=== PATIENT | male | born 1995 ===

== ENCOUNTER 2025-01-15 18:57 | Outpatient (CLI) | payer MEDICARE, SELFPAY | END 2025-01-15 18:58 | disposition home or self-care (01) | LOC: AMB 01-19 01:20 | PROVIDERS: Visit Provider Family Medicine | DX: F29 Unspecified psychosis not due to a substance or known physiological condition (principal) | CPT/HCPCS: A0425; A0429 ==

== ENCOUNTER 2025-01-15 19:17 | Emergency (ER) | payer MEDICARE, SELFPAY ==
[2025-01-15 19:27] VITALS: BP 122/87; PULSE 102; RESP 22; TEMP 36.6; O2SAT 95; BMI 30.1
[2025-01-15 19:35] LABS: Cannabinoid Screen Urine Negative (Negative); Methamphetamines Screen Urine Negative (Negative); Tricyclic Antidepressant Urine Negative (Negative)
--- NOTE | 2025-01-15 20:01 | ED.AMS ---
HPI - Altered Mental Status General Time Seen by Provider: 20:01 <Manuela Montano MD - Last Filed: 01/19/25 14:40> Date Seen: 01/15/25 <Manuela Montano MD - Last Filed: 01/19/25 14:40> Chief Complaint: Altered Mental Status <Manuela Montano MD - Last Filed: 01/19/25 14:40> Stated Complaint: Hallucinations <Manuela Montano MD - Last Filed: 01/19/25 14:40> Time Seen by Provider: 01/15/25 20:01 <Manuela Montano MD - Last Filed: 01/19/25 14:40> Source: patient and RN notes reviewed <Manuela Montano MD - Last Filed: 01/19/25 14:40> Mode of arrival: ambulatory <Manuela Montano MD - Last Filed: 01/19/25 14:40> Limitations: no limitations <Manuela Montano MD - Last Filed: 01/19/25 14:40> History of Present Illness HPI narrative: New is a very pleasant 29-year-old male with history of hallucinations in the past, possibly schizophrenia currently on Geodon who is brought to the emergency room by EMS after he thought somebody was following him in an SUV and went to a random house and asked for help. He comes here voluntarily. His mom called nursing staff stating that she would like him to have inpatient treatment. In discussion with the patient, he notes that he is currently here at a sober house in [place] for the past few weeks for the treatment of alcohol abuse. He has not had any alcohol. Notes that he has been randomly vomiting but no diarrhea fever chills and he has not suffered any trauma. He tells me has a history of PTSD and when his anxiety spikes he hears voices. The voices do not tell him anything specifically to do. He notes right now he is still feeling somewhat panicked. He is agreeable to taking some medication. Denies any drug use. Does use cigarettes. Has been hospitalized previously in [place]. He does ask if we have a psychiatric floor here at [facility]. He is disappointed that we do not. Denies fever chills cough cold congestion. The patient denies any suicidal ideation. No homicidal ideation. <Manuela Montano MD - Last Filed: 01/19/25 14:40> Related Data Home Medications: Home Medications ?Medication ?Instructions ?Recorded ?Confirmed fluoxetine 20 mg capsule 60 mg PO QAM 01/16/25 01/16/25 hydroxyzine pamoate 50 mg capsule 50 mg PO BID PRN 01/16/25 01/16/25 prazosin 1 mg capsule 3 mg PO QHS 01/16/25 01/16/25 trazodone 50 mg tablet 50 mg PO QPM 01/16/25 01/16/25 ziprasidone HCl 80 mg capsule 80 mg PO BID 01/16/25 01/16/25 <Manuela Montano MD - Last Filed: 01/19/25 14:40> Allergies/Adverse Reactions: Allergies Allergy/AdvReac Type Severity Reaction Status Date / Time No Known Drug Allergies Allergy Verified 01/16/25 08:11 <Manuela Montano MD - Last Filed: 01/19/25 14:40> Review of Systems Status of ROS: Reports: 10 or more systems reviewed and unremarkable except as noted in History and below <Manuela Montano MD - Last Filed: 01/19/25 14:40> Const: Denies: fever, chills or fatigue <Manuela Montano MD - Last Filed: 01/19/25 14:40> Eyes: Denies: change in vision or blurry vision <Manuela Montano MD - Last Filed: 01/19/25 14:40> ENMT: Denies: throat pain, neck pain or nasal congestion <Manuela Montano MD - Last Filed: 01/19/25 14:40> Cardio: Denies: chest pain, palpitations, swelling of feet/ankles, lightheadedness or shortness of breath with exertion <Manuela Montano MD - Last Filed: 01/19/25 14:40> Resp: Denies: shortness of breath or cough <Manuela Montano MD - Last Filed: 01/19/25 14:40> GI: Reports: nausea and vomiting; Denies: abdominal pain or diarrhea <Manuela Montano MD - Last Filed: 01/19/25 14:40> : Reports: urinary frequency; Denies: painful urination or urinary urgency <Manuela Montano MD - Last Filed: 01/19/25 14:40> Musculo: Denies: back pain or neck pain <Manuela Montano MD - Last Filed: 01/19/25 14:40> Integ/Breast: Denies: rash <Manuela Montano MD - Last Filed: 01/19/25 14:40> Neuro: Denies: headache <Manuela Montano MD - Last Filed: 01/19/25 14:40> Psych: Reports: anxiety and panic attacks; Denies: suicidal ideation or homicidal ideation <Manuela Montano MD - Last Filed: 01/19/25 14:40> Endo: Denies: fatigue <Manuela Montano MD - Last Filed: 01/19/25 14:40> PFSH PFSH Social History: Social History Smoking Status: Current every day smoker What tobacco products do you use: cigarettes How often do you have a drink containing alcohol: never AUDIT-C Alcohol total score: 0 Non-prescribed substance use: denies use <Manuela Montano MD - Last Filed: 01/19/25 14:40> Exam Narrative: Exam Narrative: Alert and oriented. Slight delay in answering questions but when he does it is appropriate speech pronunciation and mentation. Eye contact ranges from a staring to avoiding my gaze. Face is symmetrical. Head is atraumatic. Heart with regular rate and rhythm and lungs are clear. Abdomen soft. Moving all extremities. <Manuela Montano MD - Last Filed: 01/19/25 14:40> Const: Vital Signs, click to edit/add: Vital Signs - 24 hr 01/15/25 23:58 01/16/25 02:38 01/16/25 07:41 Temperature 98.5 F Pulse Rate [Right Radial] 83 80 84 Respiratory Rate 16 16 16 Blood Pressure [Ri ght Upper Arm] 136/91 H 125/73 127/79 Pulse Oximetry 93 96 95 Oxygen Delivery Me thod Room Air Room Air Room Air 01/16/25 12:31 Temperature 98.1 F Pulse Rate [Right Radial] 76 Respiratory Rate 16 Blood Pressure [Ri ght Upper Arm] 122/59 L Pulse Oximetry 96 Oxygen Delivery Me thod Room Air <Manuela Montano MD - Last Filed: 01/19/25 14:40> Vital Signs, click to edit/add: Vital Signs - 24 hr 01/15/25 23:58 01/16/25 02:38 01/16/25 07:41 Temperature 98.5 F Pulse Rate [Right Radial] 83 80 84 Respiratory Rate 16 16 16 Blood Pressure [Ri ght Upper Arm] 136/91 H 125/73 127/79 Pulse Oximetry 93 96 95 Oxygen Delivery Me thod Room Air Room Air Room Air 01/16/25 12:31 Temperature 98.1 F Pulse Rate [Right Radial] 76 Respiratory Rate 16 Blood Pressure [Ri ght Upper Arm] 122/59 L Pulse Oximetry 96 Oxygen Delivery Me thod Room Air <Cathy Mayo MD - Last Filed: 01/16/25 23:53> Vital Signs, click to edit/add: Vital Signs - 24 hr 01/15/25 23:58 01/16/25 02:38 01/16/25 07:41 Temperature 98.5 F Pulse Rate [Right Radial] 83 80 84 Respiratory Rate 16 16 16 Blood Pressure [Ri ght Upper Arm] 136/91 H 125/73 127/79 Pulse Oximetry 93 96 95 Oxygen Delivery Me thod Room Air Room Air Room Air 01/16/25 12:31 Temperature 98.1 F Pulse Rate [Right Radial] 76 Respiratory Rate 16 Blood Pressure [Ri ght Upper Arm] 122/59 L Pulse Oximetry 96 Oxygen Delivery Me thod Room Air <Alon Olsen DO - Last Filed: 01/16/25 16:05> Documenting provider has reviewed patient's vital signs: yes <Manuela Montano MD - Last Filed: 01/19/25 14:40> Course Course ED Course: Differential diagnosis includes but is not limited to drug use, alcohol withdrawal, flare of schizophrenia, electrolyte imbalance. Patient denies any suicidal ideation at this time he has been cooperative here in the emergency room and states stated to nursing staff that he wants to be here. Does appear that he feels safe to be here. He is receptive to medication and I do think it will given Valium 5 mg IV as there is a shortage of Ativan. Will also give 1 L of normal saline and check CBC, comprehensive panel, TSH, magnesium, EtOH. U tox is already sent. Will also check urinalysis. <Manuela Montano MD - Last Filed: 01/19/25 14:40> Reevaluation(s) Reevaluation #1: Patient is much more relaxed and the Valium seems to have helped. <Manuela Montano MD - Last Filed: 01/19/25 14:40> Patient is much more relaxed and the Valium seems to have helped. Update:Dr. Mayo: Patient had no additional issues overnight. He requested trazodone for sleep which was ordered for him as well as a low-dose of oral lorazepam and patient did get some sleep tonight. He remained sleeping at the end of my shift, observed on monitors only. Vital signs have been stable. Daily home meds have been ordered. Awaiting inpatient placement. <Cathy Mayo MD - Last Filed: 01/16/25 23:53> Consultations Consultation #1: I spoke with CLAUDIA and patient expressed self-harm thoughts the distance learning unit leader but denies them to me. Patient is willing to go inpatient. <Manuela Montano MD - Last Filed: 01/19/25 14:40> Vital Signs Vital signs: Initial Vital Signs Temperature 98 F 01/15/25 19:27 Temperature Source Temporal Artery Scan 01/15/25 19:27 Pulse Rate 102 H 01/15/25 19:27 Respiratory Rate 22 01/15/25 19:27 Blood Pressure 122/87 01/15/25 19:27 Blood Pressure Mean 98 01/15/25 19:27 Pulse Oximetry 95 01/15/25 19:27 Oxygen Delivery Method Room Air 01/15/25 19:27 Vital Signs Temperature 98 F 01/15/25 19:27 Pulse Rate 102 H 01/15/25 19:27 Respiratory Rate 22 01/15/25 19:27 Blood Pressure 122/87 01/15/25 19:27 Pulse Oximetry 95 01/15/25 19:27 Oxygen Delivery Method Room Air 01/15/25 19:27 Temperature 98.1 F 01/16/25 12:31 Pulse Rate 76 01/16/25 12:31 Respiratory Rate 16 01/16/25 12:31 Blood Pressure 122/59 L 01/16/25 12:31 Pulse Oximetry 96 01/16/25 12:31 Oxygen Delivery Method Room Air 01/16/25 12:31 <Manuela Montano MD - Last Filed: 01/19/25 14:40> Initial Vital Signs Temperature 98 F 01/15/25 19:27 Temperature Source Temporal Artery Scan 01/15/25 19:27 Pulse Rate 102 H 01/15/25 19:27 Respiratory Rate 22 01/15/25 19:27 Blood Pressure 122/87 01/15/25 19:27 Blood Pressure Mean 98 01/15/25 19:27 Pulse Oximetry 95 01/15/25 19:27 Oxygen Delivery Method Room Air 01/15/25 19:27 Vital Signs Temperature 98 F 01/15/25 19:27 Pulse Rate 102 H 01/15/25 19:27 Respiratory Rate 22 01/15/25 19:27 Blood Pressure 122/87 01/15/25 19:27 Pulse Oximetry 95 01/15/25 19:27 Oxygen Delivery Method Room Air 01/15/25 19:27 Temperature 98.1 F 01/16/25 12:31 Pulse Rate 76 01/16/25 12:31 Respiratory Rate 16 01/16/25 12:31 Blood Pressure 122/59 L 01/16/25 12:31 Pulse Oximetry 96 01/16/25 12:31 Oxygen Delivery Method Room Air 01/16/25 12:31 <Cathy Mayo MD - Last Filed: 01/16/25 23:53> Initial Vital Signs Temperature 98 F 01/15/25 19:27 Temperature Source Temporal Artery Scan 01/15/25 19:27 Pulse Rate 102 H 01/15/25 19:27 Respiratory Rate 22 01/15/25 19:27 Blood Pressure 122/87 01/15/25 19:27 Blood Pressure Mean 98 01/15/25 19:27 Pulse Oximetry 95 01/15/25 19:27 Oxygen Delivery Method Room Air 01/15/25 19:27 Vital Signs Temperature 98 F 01/15/25 19:27 Pulse Rate 102 H 01/15/25 19:27 Respiratory Rate 22 01/15/25 19:27 Blood Pressure 122/87 01/15/25 19:27 Pulse Oximetry 95 01/15/25 19:27 Oxygen Delivery Method Room Air 01/15/25 19:27 Temperature 98.1 F 01/16/25 12:31 Pulse Rate 76 01/16/25 12:31 Respiratory Rate 16 01/16/25 12:31 Blood Pressure 122/59 L 01/16/25 12:31 Pulse Oximetry 96 01/16/25 12:31 Oxygen Delivery Method Room Air 01/16/25 12:31 <Alon Olsen DO - Last Filed: 01/16/25 16:05> Medications Administered Medications: Discontinued Medications Generic Name Dose Route Start Last Admin Trade Name Freq PRN Reason Stop Dose Admin Diazepam 5 mg 01/15/25 20:19 01/15/25 20:30 Diazepam 5 Mg/Ml Inj IV 01/15/25 20:20 5 mg ONCE ONE Administration Fluoxetine HCl 60 mg 01/16/25 09:00 01/16/25 08:29 Fluoxetine Hcl 20 Mg Capsule PO 60 mg QAM MARIELY Administration Sodium Chloride 1,000 mls @ 1,000 mls/hr 01/15/25 20:19 01/15/25 21:55 0.9 % Sodium Chloride 1000 Ml IV 01/15/25 21:18 Infused .Q1H MARIELY Infusion Lorazepam 1 mg 01/16/25 02:24 01/16/25 02:28 Lorazepam 0.5 Mg Tablet PO 01/16/25 02:25 1 mg ONCE ONE Administration Trazodone HCl 50 mg 01/16/25 02:24 01/16/25 02:38 Trazodone Hcl 50 Mg Tablet PO 01/16/25 02:25 50 mg ONCE ONE Administration Ziprasidone 80 mg 01/16/25 09:00 01/16/25 08:29 Ziprasidone Hcl 20 Mg Capsule PO 80 mg BID MARIELY Administration <Manuela Montano MD - Last Filed: 01/19/25 14:40> Discontinued Medications Generic Name Dose Route Start Last Admin Trade Name Freq PRN Reason Stop Dose Admin Diazepam 5 mg 01/15/25 20:19 01/15/25 20:30 Diazepam 5 Mg/Ml Inj IV 01/15/25 20:20 5 mg ONCE ONE Administration Fluoxetine HCl 60 mg 01/16/25 09:00 01/16/25 08:29 Fluoxetine Hcl 20 Mg Capsule PO 60 mg QAM MARIELY Administration Sodium Chloride 1,000 mls @ 1,000 mls/hr 01/15/25 20:19 01/15/25 21:55 0.9 % Sodium Chloride 1000 Ml IV 01/15/25 21:18 Infused .Q1H MARIELY Infusion Lorazepam 1 mg 01/16/25 02:24 01/16/25 02:28 Lorazepam 0.5 Mg Tablet PO 01/16/25 02:25 1 mg ONCE ONE Administration Trazodone HCl 50 mg 01/16/25 02:24 01/16/25 02:38 Trazodone Hcl 50 Mg Tablet PO 01/16/25 02:25 50 mg ONCE ONE Administration Ziprasidone 80 mg 01/16/25 09:00 01/16/25 08:29 Ziprasidone Hcl 20 Mg Capsule PO 80 mg BID MARIELY Administration <Cathy Mayo MD - Last Filed: 01/16/25 23:53> Discontinued Medications Generic Name Dose Route Start Last Admin Trade Name Freq PRN Reason Stop Dose Admin Diazepam 5 mg 01/15/25 20:19 01/15/25 20:30 Diazepam 5 Mg/Ml Inj IV 01/15/25 20:20 5 mg ONCE ONE Administration Fluoxetine HCl 60 mg 01/16/25 09:00 01/16/25 08:29 Fluoxetine Hcl 20 Mg Capsule PO 60 mg QAM MAIRELY Administration Sodium Chloride 1,000 mls @ 1,000 mls/hr 01/15/25 20:19 01/15/25 21:55 0.9 % Sodium Chloride 1000 Ml IV 01/15/25 21:18 Infused .Q1H MARIELY Infusion Lorazepam 1 mg 01/16/25 02:24 01/16/25 02:28 Lorazepam 0.5 Mg Tablet PO 01/16/25 02:25 1 mg ONCE ONE Administration Trazodone HCl 50 mg 01/16/25 02:24 01/16/25 02:38 Trazodone Hcl 50 Mg Tablet PO 01/16/25 02:25 50 mg ONCE ONE Administration Ziprasidone 80 mg 01/16/25 09:00 01/16/25 08:29 Ziprasidone Hcl 20 Mg Capsule PO 80 mg BID MARIELY Administration <Alon Olsen DO - Last Filed: 01/16/25 16:05> MDM - Altered Mental Status MDM Narrative Medical decision making narrative: 1. Schizophrenia-have not received notes from his primary hospital but patient does state that he does have this diagnosis. Has been previously hospitalized in [place]. Unfortunately, his anxiety and stressors have been increased today as he is thinking that an SUV has been following him. He denies any visual hallucinations today although admits that that has happened in the past. Patient received Valium 5 mg and this seems to have helped him quite a bit. Consult with our [facility] mental health was done. Patient then stated he was suicidal. We will be finding a bed for him. Is voluntary at this point. 2. Vomiting-alcohol level is 0 and patient has not been drinking for several weeks. He does not appear to be in withdrawal. Electrolytes are reassuring along with normal kidney function. 3. Disposition-patient currently resting comfortably in exam room 2. He has been cooperative and interactive. Voluntary at this time. However, should he attempt to leave I will be placing a 72 hour hold. Currently attempting inpatient treatment and transfer to outside facility. This patient will be signed out to my colleague Dr. Mayo. <Manuela Montano MD - Last Filed: 01/19/25 14:40> Patient was signed out to me pending placement. He was accepted to [facility] in [facility]. Transfer is delayed due to EMS staffing. Will be signed out to my colleague pending transfer <Alon Olsen DO - Last Filed: 01/16/25 16:05> Lab Data Attestation: I reviewed the patient's lab results. <Manuela Montano MD - Last Filed: 01/19/25 14:40> Labs: Lab Results 01/15/25 01/15/25 01/15/25 Range/Units 19:21 20:19 20:30 WBC 8.26 (4.50-11.00) K/uL RBC 5.31 (4.30-5.90) m/uL Hgb 15.0 (13.5-17.5) gm/dL Hct 43.3 (37.0-53.0) % MCV 82 (80-100) fL MCH 28 (26-34) pg MCHC 35 (32-36) gm/dL RDW Coeff of Yuli 11.9 (11.5-15.5) % Plt Count 211 (140-440) K/uL Neut % (Auto) 78.9 H (42.0-72.0) % Lymph % (Auto) 13.4 L (20-44) % [place] % (Auto) 6.1 (0.0-11.0) % Eos % (Auto) 0.7 (0.0-7.0) % Baso % (Auto) 0.4 (0.0-3.0) % Neut # (Auto) 6.50 (1.7-7.0) K/uL Lymph # (Auto) 1.10 (0.90-2.90) K/uL [place] # (Auto) 0.50 (0.00-0.90) K/UL Eos # (Auto) 0.06 (0.00-0.50) K/uL Baso # (Auto) 0.03 (0.00-0.30) K/uL Abs Immat Gran (auto) 0.04 (0.00-0.30) K/uL Imm/Tot Granulo (auto) 0.5 % Sodium 136 (135-149) mmol/L Potassium 3.5 L (3.6-5.1) mmol/L Chloride 100 (96-114) mmol/L Carbon Dioxide 26 (20-32) mmol/L Anion Gap 8 (7-15) mEq/L BUN 15 (5-24) mg/dL Creatinine 0.8 (0.5-1.5) mg/dL Estimated Creat Clear 129.68 Estimated GFR 124 ml/min Glucose 123 H (60-115) mg/dL Calcium 8.6 (8.4-10.6) mg/dL Magnesium 1.8 (1.5-2.6) mg/dL Total Bilirubin 0.4 (0.1-1.5) mg/dL AST 37 H (12-35) U/L ALT 36 (4-50) U/L Alkaline Phosphatase 93 (40-150) U/L Total Protein 7.2 (6.0-8.3) g/dL Albumin 4.3 (3.3-5.0) g/dL TSH 1.760 (0.270-4.200) uIU/mL Urine Color Yellow (Yellow) Urine Appearance Clear (Clear) Urine pH 6.5 (5.0-8.5) Ur Specific [place] 1.025 (1.000-1.030) Urine Protein Negative (Negative) Urine Glucose (UA) Negative (Negative) Urine Ketones Negative (Negative) Urine Blood Negative (Negative) Urine Nitrite Negative (Negative) Urine Bilirubin Negative (Negative) Urine Urobilinogen 0.2 (0.2-1.0) Ur Leukocyte Esterase Negative (Negative) Urine RBC 0-2 (0-2) Urine WBC 0-2 (0-5) Ur Squamous Epith Cells Few (None-Few) Urine Bacteria None (None) Urine Opiates Screen Negative (Negative) Ur Oxycodone Screen Negative (Negative) Urine Methadone Screen Negative (Negative) Ur Barbiturates Screen Negative (Negative) U Tricyclic Antidepress Negative (Negative) Ur Phencyclidine Scrn Negative (Negative) Ur Amphetamines Screen Negative (Negative) U Methamphetamines Scrn Negative (Negative) U Benzodiazepines Scrn Negative (Negative) Urine Cocaine Screen Negative (Negative) U Marijuana (THC) Screen Negative (Negative) Ur Drug Screen Comment See Note Ethyl Alcohol < 0.01 (0.01-0.03) % <Manuela Montano MD - Last Filed: 01/19/25 14:40> Lab Results 01/15/25 01/15/25 01/15/25 Range/Units 19:21 20:19 20:30 WBC 8.26 (4.50-11.00) K/uL RBC 5.31 (4.30-5.90) m/uL Hgb 15.0 (13.5-17.5) gm/dL Hct 43.3 (37.0-53.0) % MCV 82 (80-100) fL MCH 28 (26-34) pg MCHC 35 (32-36) gm/dL RDW Coeff of Yuli 11.9 (11.5-15.5) % Plt Count 211 (140-440) K/uL Neut % (Auto) 78.9 H (42.0-72.0) % Lymph % (Auto) 13.4 L (20-44) % [place] % (Auto) 6.1 (0.0-11.0) % Eos % (Auto) 0.7 (0.0-7.0) % Baso % (Auto) 0.4 (0.0-3.0) % Neut # (Auto) 6.50 (1.7-7.0) K/uL Lymph # (Auto) 1.10 (0.90-2.90) K/uL [place] # (Auto) 0.50 (0.00-0.90) K/UL Eos # (Auto) 0.06 (0.00-0.50) K/uL Baso # (Auto) 0.03 (0.00-0.30) K/uL Abs Immat Gran (auto) 0.04 (0.00-0.30) K/uL Imm/Tot Granulo (auto) 0.5 % Sodium 136 (135-149) mmol/L Potassium 3.5 L (3.6-5.1) mmol/L Chloride 100 (96-114) mmol/L Carbon Dioxide 26 (20-32) mmol/L Anion Gap 8 (7-15) mEq/L BUN 15 (5-24) mg/dL Creatinine 0.8 (0.5-1.5) mg/dL Estimated Creat Clear 129.68 Estimated GFR 124 ml/min Glucose 123 H (60-115) mg/dL Calcium 8.6 (8.4-10.6) mg/dL Magnesium 1.8 (1.5-2.6) mg/dL Total Bilirubin 0.4 (0.1-1.5) mg/dL AST 37 H (12-35) U/L ALT 36 (4-50) U/L Alkaline Phosphatase 93 (40-150) U/L Total Protein 7.2 (6.0-8.3) g/dL Albumin 4.3 (3.3-5.0) g/dL TSH 1.760 (0.270-4.200) uIU/mL Urine Color Yellow (Yellow) Urine Appearance Clear (Clear) Urine pH 6.5 (5.0-8.5) Ur Specific [place] 1.025 (1.000-1.030) Urine Protein Negative (Negative) Urine Glucose (UA) Negative (Negative) Urine Ketones Negative (Negative) Urine Blood Negative (Negative) Urine Nitrite Negative (Negative) Urine Bilirubin Negative (Negative) Urine Urobilinogen 0.2 (0.2-1.0) Ur Leukocyte Esterase Negative (Negative) Urine RBC 0-2 (0-2) Urine WBC 0-2 (0-5) Ur Squamous Epith Cells Few (None-Few) Urine Bacteria None (None) Urine Opiates Screen Negative (Negative) Ur Oxycodone Screen Negative (Negative) Urine Methadone Screen Negative (Negative) Ur Barbiturates Screen Negative (Negative) U Tricyclic Antidepress Negative (Negative) Ur Phencyclidine Scrn Negative (Negative) Ur Amphetamines Screen Negative (Negative) U Methamphetamines Scrn Negative (Negative) U Benzodiazepines Scrn Negative (Negative) Urine Cocaine Screen Negative (Negative) U Marijuana (THC) Screen Negative (Negative) Ur Drug Screen Comment See Note Ethyl Alcohol < 0.01 (0.01-0.03) % <Cathy Mayo MD - Last Filed: 01/16/25 23:53> Lab Results 01/15/25 01/15/25 01/15/25 Range/Units 19:21 20:19 20:30 WBC 8.26 (4.50-11.00) K/uL RBC 5.31 (4.30-5.90) m/uL Hgb 15.0 (13.5-17.5) gm/dL Hct 43.3 (37.0-53.0) % MCV 82 (80-100) fL MCH 28 (26-34) pg MCHC 35 (32-36) gm/dL RDW Coeff of Yuli 11.9 (11.5-15.5) % Plt Count 211 (140-440) K/uL Neut % (Auto) 78.9 H (42.0-72.0) % Lymph % (Auto) 13.4 L (20-44) % [place] % (Auto) 6.1 (0.0-11.0) % Eos % (Auto) 0.7 (0.0-7.0) % Baso % (Auto) 0.4 (0.0-3.0) % Neut # (Auto) 6.50 (1.7-7.0) K/uL Lymph # (Auto) 1.10 (0.90-2.90) K/uL [place] # (Auto) 0.50 (0.00-0.90) K/UL Eos # (Auto) 0.06 (0.00-0.50) K/uL Baso # (Auto) 0.03 (0.00-0.30) K/uL Abs Immat Gran (auto) 0.04 (0.00-0.30) K/uL Imm/Tot Granulo (auto) 0.5 % Sodium 136 (135-149) mmol/L Potassium 3.5 L (3.6-5.1) mmol/L Chloride 100 (96-114) mmol/L Carbon Dioxide 26 (20-32) mmol/L Anion Gap 8 (7-15) mEq/L BUN 15 (5-24) mg/dL Creatinine 0.8 (0.5-1.5) mg/dL Estimated Creat Clear 129.68 Estimated GFR 124 ml/min Glucose 123 H (60-115) mg/dL Calcium 8.6 (8.4-10.6) mg/dL Magnesium 1.8 (1.5-2.6) mg/dL Total Bilirubin 0.4 (0.1-1.5) mg/dL AST 37 H (12-35) U/L ALT 36 (4-50) U/L Alkaline Phosphatase 93 (40-150) U/L Total Protein 7.2 (6.0-8.3) g/dL Albumin 4.3 (3.3-5.0) g/dL TSH 1.760 (0.270-4.200) uIU/mL Urine Color Yellow (Yellow) Urine Appearance Clear (Clear) Urine pH 6.5 (5.0-8.5) Ur Specific [place] 1.025 (1.000-1.030) Urine Protein Negative (Negative) Urine Glucose (UA) Negative (Negative) Urine Ketones Negative (Negative) Urine Blood Negative (Negative) Urine Nitrite Negative (Negative) Urine Bilirubin Negative (Negative) Urine Urobilinogen 0.2 (0.2-1.0) Ur Leukocyte Esterase Negative (Negative) Urine RBC 0-2 (0-2) Urine WBC 0-2 (0-5) Ur Squamous Epith Cells Few (None-Few) Urine Bacteria None (None) Urine Opiates Screen Negative (Negative) Ur Oxycodone Screen Negative (Negative) Urine Methadone Screen Negative (Negative) Ur Barbiturates Screen Negative (Negative) U Tricyclic Antidepress Negative (Negative) Ur Phencyclidine Scrn Negative (Negative) Ur Amphetamines Screen Negative (Negative) U Methamphetamines Scrn Negative (Negative) U Benzodiazepines Scrn Negative (Negative) Urine Cocaine Screen Negative (Negative) U Marijuana (THC) Screen Negative (Negative) Ur Drug Screen Comment See Note Ethyl Alcohol < 0.01 (0.01-0.03) % <Alon Olsen, - Last Filed: 01/16/25 16:05> Discharge Plan Discharge Prescriptions: No Action ziprasidone HCl 80 mg capsule 80 mg PO BID trazodone 50 mg tablet 50 mg PO QPM prazosin 1 mg capsule 3 mg PO QHS hydroxyzine pamoate 50 mg capsule 50 mg PO BID PRN fluoxetine 20 mg capsule 60 mg PO QAM <Manuela Montano MD - Last Filed: 01/19/25 14:40> Follow Up/Referrals: Provider,Not a Local [Primary Care Provider, Family Practice] <Manuela Montano MD - Last Filed: 01/19/25 14:40>
[2025-01-15] MEDS: diazePAM 5 MG/ML inj IV (20:30)
[2025-01-15 20:36] LABS: Hematocrit* 43.3 % (37.0-53.0); Hemoglobin* 15.0 gm/dL (13.5-17.5); Immature Granulocytes Abs Auto 0.04 K/uL (0.00-0.30); Immature Granulocytes Pct Auto 0.5 %; Mean Corpuscular HGB Conc 35 gm/dL (32-36); Mean Corpuscular Hemoglobin 28 pg (26-34); Mean Corpuscular Volume 82 fL (80-100); RDW Coefficient of Variation % 11.9 % (11.5-15.5); Red Blood Count* 5.31 m/uL (4.30-5.90); White Blood Count* 8.26 K/uL (4.50-11.00)
[2025-01-15 20:41] LABS: Lymphocytes Absolute Auto 1.10 K/uL (0.90-2.90); Slide Review Reflex No
[2025-01-15 20:50] LABS: Albumin* 4.3 g/dL (3.3-5.0); Chloride* 100 mmol/L (96-114); Potassium* 3.5 mmol/L (3.6-5.1)
[2025-01-15 20:52] LABS: Blood Urea Nitrogen* 15 mg/dL (5-24); Creatinine* 0.8 mg/dL (0.5-1.5); Est. Creatinine Clearance* 129.68; Estimated Glomerular Filt Rate 124 ml/min
[2025-01-15 20:53] LABS: Alanine Aminotransferase* 36 U/L (4-50); Alkaline Phosphatase* 93 U/L (40-150); Anion Gap 8 mEq/L (7-15); Aspartate Amino Transferase* 37 U/L (12-35); Bilirubin Total* 0.4 mg/dL (0.1-1.5); Calcium* 8.6 mg/dL (8.4-10.6); Carbon Dioxide* 26 mmol/L (20-32); Glucose* 123 mg/dL (60-115); Total Protein* 7.2 g/dL (6.0-8.3)
[2025-01-15 20:55] LABS: Ethanol* < 0.01 % (0.01-0.03)
[2025-01-15 21:24] LABS: Sodium* 136 mmol/L (135-149); TSH With Reflex to FT4* 1.760 uIU/mL (0.270-4.200)
[2025-01-15 23:58] VITALS: BP 136/91; PULSE 83; RESP 16; O2SAT 93
[2025-01-16 02:38] VITALS: BP 125/73; PULSE 80; RESP 16; O2SAT 96
[2025-01-16] MEDS: TRAZODONE HCL 50 MG TABLET PO (02:38)
[2025-01-16 07:41] VITALS: BP 127/79; PULSE 84; RESP 16; TEMP 36.9; O2SAT 95
[2025-01-16] MEDS: FLUOXETINE HCL 20 MG CAPSULE 60 MG PO (08:29)
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
[2025-01-16 12:31] VITALS: BP 122/59; PULSE 76; RESP 16; TEMP 36.7; O2SAT 96
[2025-01-17 02:40] LABS: Appearance Urine Clear (Clear)
== END 2025-01-16 18:40 | disposition short-term general hospital (02) ==
PROVIDERS: Family Medicine; Emergency Provider Family Medicine
DX: F20.9 Schizophrenia, unspecified (principal); R11.10 Vomiting, unspecified
CPT/HCPCS: 36415; 80053; 80306; 81001; 82077; 83735; 84443; 85025; 96374; 99284; 99285; Q3014; A9270; J3360; J7030

== ENCOUNTER 2025-01-16 18:31 | Outpatient (CLI) | payer MEDICARE, SELFPAY | END 2025-01-16 18:32 | disposition home or self-care (01) | LOC: AMB 01-19 01:27 | PROVIDERS: Visit Provider Emergency Medicine | DX: R45.851 Suicidal ideations (principal) | CPT/HCPCS: A0425; A0428 ==